=== PATIENT | female | born 1995 | race Two or more races ===

== ENCOUNTER 2024-08-26 14:52 | Inpatient (IN) | payer MEDICAID ==
[~2024-08-26] VITALS: Ht 160 cm; Wt 114.0 kg
[2024-08-26 16:22] LABS: Urine Bacteria FEW /hpf (None Seen); Urine Blood TRACE /uL (Negative); Urine Clarity Turbid (Clear); Urine Color Yellow (Yellow); Urine Mucus FEW (None Seen); Urine Protein, UAD Negative (Negative); Urine Specific Gravity 1.032 (1.001-1.035); Urine Squamous Epithelial Cell MOD /hpf (<5); Urine Urobilinogen 2 mg/dL (Negative); Urine WBC 1 /HPF (0-5); Urine pH 6.5 (5.0-9.0)
[2024-08-26 16:30] LABS: Basophils # (auto) 0.1 10 ^3/uL (0-0.2); Basophils % (auto) 0.5 % (0.0-2.0); Eosinophils # (auto) 0.1 10 ^3/uL (0-0.8); Eosinophils % (auto) 0.7 % (0.0-7.0); Hematocrit 35.9 % (36.0-46.0); Hemoglobin 11.7 g/dL (12.2-16.2); Lymphocytes # (auto) 3.5 10 ^3/uL (0.4-5.4); Lymphocytes % (auto) 22.9 % (10.0-50.0); Mean Corpuscular Hemoglobin 24.7 pg (28.0-32.0); Mean Corpuscular Hgb Conc. 32.7 g/dL (32.0-36.0); Mean Corpuscular Volume 75.5 fL (80.0-100.0); Monocytes # (auto) 0.8 10 ^3/uL (0-1.3); Neutrophils # (auto) 10.7 10 ^3/uL (1.6-8.6); Neutrophils % (auto) 70.9 % (37.0-80.0); Nucleated Red Blood Cells % 0.1 %; Platelet Count (auto) 357 10^3/uL (140-450); Red Blood Cells 4.76 10^6/uL (4.0-5.20); Red Cell Distribution Width 17.3 % (11.8-14.3); White Blood Cell 15.1 10^3/uL (4.4-10.8)
[2024-08-26 16:52] LABS: Alanine Aminotransferase 12 U/L (7-40); Albumin 4.5 g/dL (3.2-4.8); Alkaline Phosphatase 94 U/L (46-116); Anion Gap 6 (5-15); BUN/Creatinine Ratio 15.8 (10.0-20.0); Bilirubin, Total 0.4 mg/dL (0.2-1.0); Calcium 8.7 mg/dL (8.7-10.4); Carbon Dioxide 26 mmol/L (20-31); Chloride 107 mmol/L (98-107); Glucose 101 mg/dL (74-106); Lipase 28 U/L (12-53); Sodium 139 mmol/L (136-145); Total Protein 7.9 g/dL (5.7-8.2)
[2024-08-26 16:54] LABS: Aspartate Aminotransferase < 8 U/L (13-40); Blood Urea Nitrogen 9 mg/dL (9-23)
--- NOTE | 2024-08-26 17:31 | ED.PDOC ---
GI ASSESSMENT HPI Comments 29 y/o F, presents to the ED for CC of abdominal pain. Patient states, she has been experiencing suprapubic abdominal pain that radiates to her lower back x days. Patient denies flank pain, dysuria, fever, nausea, vomiting, or diarrhea. No other symptoms, or modifying factors present at this time. Chief Complaint: Abdominal Pain Time Seen by MD: 16:55 Primary Care Provider: CHAPIS Loya Notes: Nurses Notes, Medications, Allergies Allergies: Coded Allergies: NO KNOWN ALLERGIES (Unverified , 08/26/24) Information Source: Patient Mode of Arrival: Ambulatory Timing: Days Duration: Since onset Prehospital treatment: None Quality: None Vomitus: None Stool: Normal Severity: Moderate Recent: None Recent Hx of: None Pain Location: Suprapubic Modifying Factors: Nothing Associated sign and symptoms: Abdominal Pain Past Medical History PAST MEDICAL HISTORY: Denies Surgical History: Denies all surgeries TRANSFERRER History: Denies all TRANSFERRER Hx Family History Family History: Unknown Social History Smoker: Non-Smoker Alcohol: Denies ETOH Use Drugs: Denies Drug Use Lives In: Home Constitutional: denies: chills, diaphoresis, fatigue, fever, malaise, sweats, weakness, others EENTM: denies: blurred vision, double vision, ear bleeding, ear discharge, ear drainage, ear pain, ear ringing, eye pain, eye redness, hearing loss, mouth pa in, mouth swelling, nasal discharge, nose bleeding, nose congestion, nose pain, photophobia, tearing, throat pain, throat swelling, voice changes, others Respiratory: denies: cough, hemoptysis, orthopnea, SOB at rest, shortness of breath, SOB with excertion, stridor, wheezing, others Cardiovascular: denies: chest pain, dizzy spells, diaphoresis, Dyspnea on exertion, edema, irregular heart beat, left arm pain, lightheadedness, palpitations, PND, syncope, others Gastrointestinal: reports: abdominal pain; denies: abdomen distended, blood streaked bowels, constipated, diarrhea, dysphagia, difficulty swallowing, hematemesis, melena, nausea, poor appetite, poor fluid intake, rectal bleeding, rectal pain, vomiting, others Genitourinary: denies: abnormal vagina bleeding, burning, dyspareunia, dysuria, flank pain, frequency, hematuria, incontinence, pain, , vagina discharge, urgency, others Neurological: denies: dizziness, fainting, headache, left sided numbness, left sided weakness, numbness, paresthesia, pre-existing deficit, right sided numbness, right sided weakness, seizure, speech problems, tingling, tremors, weakness, others Musculoskeletal: reports: back pain; denies: gout, joint pain, joint swelling, muscle pain, muscle stiffness, neck pain, others Integumetry: denies: bruises, change in color, change in hair/nails, dryness, laceration, lesions, lumps, rash, wounds, others Allergic/Immunocompromised: denies: Difficulty Healing, Frequent Infections, Hives, Itching, others Hematologic/Lymphatic: denies: anemia, blood clots, easy bleeding, easy bruising, swollen glands, others Endocrine: denies: excessive hunger, excessive sweating, excessive thirst, excessive urination, flushing, intolerance to cold, intolerance to heat, unexplained weight gain, unexplained weight loss, others Psychiatric: denies: anxiety, bipolar disorder, depression, hopeless, panic di sorder, schizophrenia, sleepless, suicidal, others All Other Systems: Reviewed and Negative Physical Exam General Appearance: No Apparent Distress, Normal HEENT: Normal ENT Inspection, Pharynx Normal, TMs Normal Neck: Full Range of Motion, Non-Tender, Normal, Normal Inspection Respiratory: Chest Non-Tender, Lungs Clear, No Accessory Muscle Use, No Respiratory Distress, Normal Breath Sounds Cardiovascular: No Edema, No Murmur, No Gallop, Normal Peripheral Pulses, Regular Rate/Rhythm Breast Exam: Deferred Gastrointestinal: No Organomegaly, Non Tender, No Pulsatile Mass, Normal Bowel Sounds, Soft Genitalia: Deferred Pelvic: Deferred Rectal: Deferred Extremities: No calf tenderness, Normal capillary refill, Normal inspection, Normal range of motion, Non-tender, No pedal edema Musculoskeletal : Apperance: Normal Neurologic: Alert, 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 Was a procedure done?: No GI differential Dx Differential Diagnosis: Cholangitis, Cholecystitis, Pancreatitis, Urolithiasis, Kidney Stone X-Ray, Labs, Meds, VS Vital Signs Date Time Temp Pulse Resp B/P (MAP) Pulse Ox O2 Delivery O2 Flow Rate FiO2 08/26/24 18:25 76 84 97 Room Air 08/26/24 18:25 98.2 84 20 111/63 (79) 97 98.2 08/26/24 15:03 98.3 95 18 124/70 (88) 95 98.3 Lab Test 08/26/24 16:16 08/26/24 15:07 Range/Units White Blood Count 15.1 H 4.4-10.8 10^3/uL Red Blood Count 4.76 4.0-5.20 10^6/uL Hemoglobin 11.7 L 12.2-16.2 g/dL Hematocrit 35.9 L 36.0-46.0 % Mean Corpuscular Volume 75.5 L 80.0-100.0 fL Mean Corpuscular Hemoglobin 24.7 L 28.0-32.0 pg Mean Corpuscular Hemoglobin Concent 32.7 32.0-36.0 g/dL Red Cell Distribution Width 17.3 H 11.8-14.3 % Platelet Count 357 140-450 10^3/uL Mean Platelet Volume 7.4 6.9-10.8 fL Neutrophils (%) (Auto) 70.9 37.0-80.0 % Lymphocytes (%) (Auto) 22.9 10.0-50.0 % Monocytes (%) (Auto) 5.0 0.0-12.0 % Eosinophils (%) (Auto) 0.7 0.0-7.0 % Basophils (%) (Auto) 0.5 0.0-2.0 % Neutrophils # (Auto) 10.7 H 1.6-8.6 10 ^3/uL Lymphocytes # (Auto) 3.5 0.4-5.4 10 ^3/uL Monocytes # (Auto) 0.8 0-1.3 10 ^3/uL Eosinophils # (Auto) 0.1 0-0.8 10 ^3/uL Basophils # (Auto) 0.1 0-0.2 10 ^3/uL Nucleated Red Blood Cells 0.1 % Sodium Level 139 136-145 mmol/L Potassium Level 4.0 3.5-5.1 mmol/L Chloride Level 107 98-107 mmol/L Carbon Dioxide Level 26 20-31 mmol/L Anion Gap 6 5-15 Blood Urea Nitrogen 9 9-23 mg/dL Creatinine 0.57 0.550-1.02 mg/dL Glomerular Filtration Rate Calc 127 >90 mL/min BUN/Creatinine Ratio 15.8 10.0-20.0 Serum Glucose 101 74-106 mg/dL Calcium Level 8.7 8.7-10.4 mg/dL Total Bilirubin 0.4 0.2-1.0 mg/dL Aspartate Amino Transferase (AST) < 8 L 13-40 U/L Alanine Aminotransferase (ALT) 12 7-40 U/L Alkaline Phosphatase 94 46-116 U/L Total Protein 7.9 5.7-8.2 g/dL Albumin 4.5 3.2-4.8 g/dL Lipase 28 12-53 U/L Urine Color Yellow Yellow Urine Clarity Turbid H Clear Urine pH 6.5 5.0-9.0 Urine Specific [place] 1.032 1.001-1.035 Urine Protein Negative Negative Urine Ketones Negative Negative Urine Blood Trace H Negative /uL Urine Nitrite Negative Negative Urine Bilirubin Negative Negative Urine Urobilinogen 2 H Negative mg/dL Urine Leukocyte Esterase Negative Negative /uL Urine RBC 14 0 - 4 /hpf Urine Microscopic WBC 1 0-5 /HPF Urine Squamous Epithelial Cells Mod <5 /hpf Urine Bacteria Few H None Seen /hpf Urine Mucus Few None Seen Urine Glucose Normal Normal mg/dL Urine Test Negative Negative Time of 1ST Reevaluation: 17:25 Reevaluation 1ST: Unchanged Patient Education/Counseling: Diagnosis, Treatment Family Education/Counseling: No Family Present Departure 1 Departure Time of Disposition: 20:58 Impression: Primary Impression: Appendicitis Disposition: 09 ADMITTED INPATIENT Condition: Stable Comments Patient admitted to hospitalist service for further treatment, evaluation and monitoring. General surgery consulted Antibiotics initiated in the emergency department Critical Care Note Critical Care Time?: No Stability Stability form required: No Heart Score Heart Score: Heart Score Response (Comments) Value History N/A 0 EKG N/A 0 Age N/A 0 Risk Factors N/A 0 Troponin N/A 0 Total 0 I personally scribed for HASEEB PECK MD ([email or web address]) on 08/26/24 at 17:31. Electronically submitted by Heaven Pritchett [email or web address]). HASEEB PECK MD August 26, 2024 17:31 DENISE WHITTINGTON MD August 26, 2024 21:00
--- NOTE | 2024-08-26 18:28 | DVH ---
Indication: suprapubic pain Technique: CT axial images of the abdomen and pelvis are obtained without contrast. Coronal and sagit rachel reformats were obtained. Radiation Dose Information: CTDI volume is 21 mGy. Dose-length product is 1162 mGy*cm Comparison: None FINDINGS: There is limited interpretation of the abdomen and pelvis without administration of intravenous contr ast. Lung bases demonstrate no pleural effusion. Adrenal glands, spleen and pancreas unremarkable in shape. Liver unremarkable in shape. No CT evide nce for cholelithiasis. No hydronephrosis, nephrolithiasis. Stomach partially distended. Small bowel loops are normal in caliber. Colonic diverticular disease. Moderate volume stool within the colon. The appendix is inflamed and 10 mm in diameter. Periappendiceal stranding. There are small adjacent lymph nodes in the right lower quadrant mesentery. There is a right ovarian / adnexal region fat containing lesion with calcifications measuring 6.1 x 3 .8 cm consistent with an ovarian dermoid. Trace free pelvic fluid. No inguinal lymphadenopathy. No aggressive osseous process. IMPRESSION: 1. Acute appendicitis. 2. Right ovarian/ adnexal region dermoid. Recommend pelvic ultrasound and manager media consultation for furth er management. Findings communicated to the emergency room physician at 6:25 p.m. On 08/26/2024
[2024-08-26] MEDS: metroNIDAZOLE 500MG/100ML 100 ML IV ONE (18:30)
--- NOTE | 2024-08-26 19:54 | DVH ---
CHEST RADIOGRAPH Indication: preop Technique: Single frontal view of the chest was obtained COMPARISON: None FINDINGS: Lines and Tubes: None Lungs: Clear Pleura: No effusion. No pneumothorax. Cardiomediastinal contours: Unremarkable Bones: Unremarkable IMPRESSION: No abnormality.
--- NOTE | 2024-08-26 20:15 | DVH ---
TRANSABDOMINAL AND TRANSVAGINAL PELVIC ULTRASOUND CLINICAL HISTORY: Rule out ovarian torsion TECHNIQUE: Multiple grayscale ultrasound images were obtained of the pelvis via transabdominal and tr ansvaginal approach. Limited color Doppler and spectral Doppler acquisitions were also obtained. COMPARISON: None FINDINGS: Uterus: 8.7 x 3.9 x 4.3 cm. The uterine contour is smooth. No myometrial masses are seen. Endometrium: 0.9 cm. No endometrial mass is seen. Right adnexa: right ovary 2.4 x 1.8 x 2.5 cm. Normal arterial blood flow in the ovary. There is a martir moid cyst in the right ovary/ adnexa measuring 5.8 x 4.9 x 4.7 cm. Left adnexa: left ovary 2.1 x 2.6 x 2.2 cm. Normal arterial blood flow in the ovary. No left adnexal mass seen. Corpus luteum in the left ovary measuring up to 1.8 cm. Other: None IMPRESSION: 1. Right ovarian/ adnexal dermoid cyst. 2. Otherwise normal bilateral ovaries and uterus.
--- NOTE | 2024-08-26 21:12 | DVHINCON2 ---
Consultation - Surgical Date Seen: August 26, 2024 Referring Physician Referring Physician Emergency room Reason for Consultation Rule out appendicitis abdominal pain History of Present Illness History of Present Illness This is a 29-year-old female who has 3 children normal pregnancies. Developed epigastric and periumbilical pain 48 hours ago. Went to [facility] yesterday she was discharged with a diagnosis of GERD however after reviewing her labs with her her white count was 19. She was discharged earlier this morning from the emergency room and came to [facility] this afternoon. She denies any fevers or chills. She has had a normal bowel movement this morning. She is mildly hungry as well. She states the pain comes and goes and is sharp when it does it also radiates to her right back flank area. She has last menstrual period was in July 2024. Past Medical/Surgical History Past Medical/Surgical History None Family and Social History Family and Social History None Allergies and medications Allergies: Coded Allergies: NO KNOWN ALLERGIES (Unverified , 08/26/24) Review of systems Review of Systems: HEENT:Normal, CVS:Normal, RESPIRATORY:Normal, GI:Normal, :Normal, MSK:Normal, NEURO:Normal Examination Vital signs Vital Signs Date Time Temp Pulse Resp B/P (MAP) Pulse Ox O2 Delivery O2 Flow Rate FiO2 08/26/24 18:25 76 84 97 Room Air 08/26/24 18: 98.2 111/63 (79) 98.2 Medications Current Medications Medications (Trade) Dose Ordered Sig/Christophe Route PRN Reason Start Time Stop Time Status Last Admin Ceftriaxone Sodium 50 ml @ 100 mls/hr DAILY@09 IV 08/27/24 09:00 Metronidazole 100 ml @ 100 mls/hr Q8HR IV 08/26/24 22:00 Ondansetron HCl (Zofran) 4 mg Q4HP PRN IV NAUSEA / VOMITING 08/26/24 19:15 Morphine Sulfate 2 mg Q4HPRN PRN IV SEVERE PAIN (7-10 PAIN SCALE) 08/26/24 19:15 Laboratory Labs Test 08/26/24 20:20 08/26/24 16:16 08/26/24 15:07 Range/Units White Blood Count 15.1 H 4.4-10.8 10^3/uL Red Blood Count 4.76 4.0-5.20 10^6/uL Hemoglobin 11.7 L 12.2-16.2 g/dL Hematocrit 35.9 L 36.0-46.0 % Mean Corpuscular Volume 75.5 L 80.0-100.0 fL Mean Corpuscular Hemoglobin 24.7 L 28.0-32.0 pg Mean Corpuscular Hemoglobin Concent 32.7 32.0-36.0 g/dL Red Cell Distribution Width 17.3 H 11.8-14.3 % Platelet Count 357 140-450 10^3/uL Mean Platelet Volume 7.4 6.9-10.8 fL Neutrophils (%) (Auto) 70.9 37.0-80.0 % Lymphocytes (%) (Auto) 22.9 10.0-50.0 % Monocytes (%) (Auto) 5.0 0.0-12.0 % Eosinophils (%) (Auto) 0.7 0.0-7.0 % Basophils (%) (Auto) 0.5 0.0-2.0 % Neutrophils # (Auto) 10.7 H 1.6-8.6 10 ^3/uL Lymphocytes # (Auto) 3.5 0.4-5.4 10 ^3/uL Monocytes # (Auto) 0.8 0-1.3 10 ^3/uL Eosinophils # (Auto) 0.1 0-0.8 10 ^3/uL Basophils # (Auto) 0.1 0-0.2 10 ^3/uL Nucleated Red Blood Cells 0.1 % Sodium Level 139 136-145 mmol/L Potassium Level 4.0 3.5-5.1 mmol/L Chloride Level 107 98-107 mmol/L Carbon Dioxide Level 26 20-31 mmol/L Anion Gap 6 5-15 Blood Urea Nitrogen 9 9-23 mg/dL Creatinine 0.57 0.550-1.02 mg/dL Glomerular Filtration Rate Calc 127 >90 mL/min BUN/Creatinine Ratio 15.8 10.0-20.0 Serum Glucose 101 74-106 mg/dL Calcium Level 8.7 8.7-10.4 mg/dL Total Bilirubin 0.4 0.2-1.0 mg/dL Aspartate Amino Transferase (AST) < 8 L 13-40 U/L Alanine Aminotransferase (ALT) 12 7-40 U/L Alkaline Phosphatase 94 46-116 U/L Total Protein 7.9 5.7-8.2 g/dL Albumin 4.5 3.2-4.8 g/dL Lipase 28 12-53 U/L Urine Color Yellow Yellow Urine Clarity Turbid H Clear Urine pH 6.5 5.0-9.0 Urine Specific [place] 1.032 1.001-1.035 Urine Protein Negative Negative Urine Ketones Negative Negative Urine Blood Trace H Negative /uL Urine Nitrite Negative Negative Urine Bilirubin Negative Negative Urine Urobilinogen 2 H Negative mg/dL Urine Leukocyte Esterase Negative Negative /uL Urine RBC 14 0 - 4 /hpf Urine Microscopic WBC 1 0-5 /HPF Urine Squamous Epithelial Cells Mod <5 /hpf Urine Bacteria Few H None Seen /hpf Urine Mucus Few None Seen Urine Glucose Normal Normal mg/dL Urine Test Negative Negative Technique: CT axial images of the abdomen and pelvis are obtained without contrast. Coronal and sagittal reformats were obtained. Radiation Dose Information: CTDI volume is 21 mGy. Dose-length product is 1162 mGy*cm Comparison: None FINDINGS: There is limited interpretation of the abdomen and pelvis without administration of intravenous contrast. Lung bases demonstrate no pleural effusion. Adrenal glands, spleen and pancreas unremarkable in shape. Liver unremarkable in shape. No CT evidence for cholelithiasis. No hydronephrosis, nephrolithiasis. Stomach partially distended. Small bowel loops are normal in caliber. Colonic diverticular disease. Moderate volume stool within the colon. The appendix is inflamed and 10 mm in diameter. Periappendiceal stranding. There are small adjacent lymph nodes in the right lower quadrant mesentery. There is a right ovarian / adnexal region fat containing lesion with calcifications measuring 6.1 x 3.8 cm consistent with an ovarian dermoid. Trace free pelvic fluid. No inguinal lymphadenopathy. No aggressive osseous process. IMPRESSION: 1. Acute appendicitis. 2. Right ovarian/ adnexal region dermoid. Recommend pelvic ultrasound and learning program manager consultation for further management. Findings communicated to the emergency room physician at 6:25 p.m. On 08/26/2024 TRANSABDOMINAL AND TRANSVAGINAL PELVIC ULTRASOUND CLINICAL HISTORY: Rule out ovarian torsion TECHNIQUE: Multiple grayscale ultrasound images were obtained of the pelvis via transabdominal and transvaginal approach. Limited color Doppler and spectral Doppler acquisitions were also obtained. COMPARISON: None FINDINGS: Uterus: 8.7 x 3.9 x 4.3 cm. The uterine contour is smooth. No myometrial masses are seen. Endometrium: 0.9 cm. No endometrial mass is seen. Right adnexa: right ovary 2.4 x 1.8 x 2.5 cm. Normal arterial blood flow in the ovary. There is a dermoid cyst in the right ovary/ adnexa measuring 5.8 x 4.9 x 4.7 cm. Left adnexa: left ovary 2.1 x 2.6 x 2.2 cm. Normal arterial blood flow in the ovary. No left adnexal mass seen. Corpus luteum in the left ovary measuring up to 1.8 cm. Other: None IMPRESSION: 1. Right ovarian/ adnexal dermoid cyst. 2. Otherwise normal bilateral ovaries and uterus. Examination: GENERAL:Normal, HEENT:Normal, NECK:Normal, LUNGS:Normal, CVS:Normal, ABDOMEN:Abnormal (Abdominal tenderness in the right lower quadrant as well as the periumbilical area in the right flank. No rebound no guarding.), MSK:Normal Problem List/Assessment/Plan Problems: (1) Appendicitis Assessment and Plan 29-year-old female with early CAT scan findings of appendicitis. Also a large adnexal mass in the right side. Admit IV fluids IV antibiotics. We will discuss the case with clerical and office support workers We will re-evaluate in the morning for possible laparoscopic possible open appendectomy Plan discussed with Plan discussed with: Patient Visit Coding Surgery Date of Service if different f: August 26, 2024 Billing Provider: BRITTANEY URIAS Jr., MD Surgery Visit Codes: 08861 - INP CONSULT <80 MIN BRITTANEY URIAS Jr., MD August 26, 2024 21:12
[2024-08-26 21:17] LABS: INR 1.04 (0.9-1.15); Partial Thromboplastin Time 30.8 SEC (24.5-34.5)
[2024-08-26] MEDS: ONDANSETRON ODT 4 MG TAB PO ONE (21:38)
[2024-08-26] MEDS: FAMOTIDINE 20 MG TAB PO ONE (21:38)
[2024-08-26] MEDS: MAALOX PLUS or MAALOX 30 ML PO ONE (21:41)
[2024-08-26] MEDS: MORPHINE SULFATE INJ 2 MG/ml SYRG IV ONE (21:41)
[2024-08-26 21:48] VITALS: PULSE 99; RESP 16; O2SAT 99
[2024-08-26] MEDS: metroNIDAZOLE 500MG/100ML 100 ML IV SCH (22:00)
[2024-08-26] MEDS: SODIUM CHLORIDE 0.9% 1,000 ML IV ONE (23:08)
[2024-08-26] MEDS: cefTRIAXone 1GM/50ML D5W 50 ML IV ONE (23:08)
[2024-08-26 23:55] VITALS: PULSE 64; RESP 18; O2SAT 93
[2024-08-27] VITALS (8 sets, daily range): BP systolic 97–132; BP diastolic 52–78; PULSE 65–89; RESP 16–20; TEMP 97.9–98.8; O2SAT 92–100
--- NOTE | 2024-08-27 00:01 | DVHHP2 ---
History of Present Illness Reason for Visit: Abdominal pain History of Present Illness 29-year-old female presents for evaluation of abdominal pain. Patient reports a three day history of epigastric/periumbilical abdominal pain that is sharp in nature and intermittent. He states today the pain became more severe with associated nausea. Denies fever or chills. No other acute complaints. Past Medical History Denies Past Surgical History Denies Family History Noncontributory Smoke: No ALCOHOL: none Drugs: None Lives: with Family Review of Systems Review of Systems Review of systems are currently negative otherwise addressed in HPI. Allergies: Coded Allergies: NO KNOWN ALLERGIES (Unverified , 08/26/24) Medications Current Medications Medications Dose Ordered Sig/Christophe Route Start Time Stop Time Status Last Admin Dose Admin Ceftriaxone Sodium 50 ml @ 100 mls/hr DAILY@09 IV 08/27/24 09:00 Metronidazole 100 ml @ 100 mls/hr Q8HR IV 08/26/24 22:00 Ondansetron HCl 4 mg Q4HP PRN IV 08/26/24 19:15 Morphine Sulfate 2 mg Q4HPRN PRN IV 08/26/24 19:15 Exam Vital Signs Vital Signs Date Time Temp Pulse Resp B/P (MAP) Pulse Ox O2 Delivery O2 Flow Rate FiO2 08/26/24 21:48 99 16 99 Room Air* 0 21 08/26/24 21:42 98.9 107/71 (83) 98.9 Exam Gen: 29-year-old female in mild distress, morbidly obese Skin: Warm, dry, normal color and texture, no rash. HEENT: Normocephalic atraumatic, mucous membranes moist and pink. Neck: Cervical and supraclavicular nodes normal without enlargement, trachea is midline, thyroid gland is normal without masses. Pulmonary: Clear to auscultation and percussion bilaterally. Cardiac: Regular rate and rhythm. No murmur Abdomen: Soft, epigastric/periumbilical tenderness, nondistended, bowel sounds present all 4 quadrants, no guarding, no rigidity, no organomegaly. Extremities: No cyanosis, clubbing, no edema Neuro: Cranial nerves II through XII grossly intact, normal affect and speech, no focal motor deficits. Labs/Xrays ORDERING PHYSICIAN: CANDACE MCCALL PROCEDURE(s): CXR1 - CHEST XRAY 1 VIEW REASON: preop ORDER NUMBER(s): [id number], ACCESSION NUMBER(s): [id number] CHEST RADIOGRAPH Indication: preop Technique: Single frontal view of the chest was obtained COMPARISON: None FINDINGS: Lines and Tubes: None Lungs: Clear Pleura: No effusion. No pneumothorax. Cardiomediastinal contours: Unremarkable Bones: Unremarkable IMPRESSION: No abnormality. RING PHYSICIAN: DENISE WHITTINGTON MD PROCEDURE(s): PELUS - PELVIC REASON: Rule out ovarian torsion ORDER NUMBER(s): [id number], ACCESSION NUMBER(s): [id number] TRANSABDOMINAL AND TRANSVAGINAL PELVIC ULTRASOUND CLINICAL HISTORY: Rule out ovarian torsion TECHNIQUE: Multiple grayscale ultrasound images were obtained of the pelvis via transabdominal and transvaginal approach. Limited color Doppler and spectral Doppler acquisitions were also obtained. COMPARISON: None FINDINGS: Uterus: 8.7 x 3.9 x 4.3 cm. The uterine contour is smooth. No myometrial masses are seen. Endometrium: 0.9 cm. No endometrial mass is seen. Right adnexa: right ovary 2.4 x 1.8 x 2.5 cm. Normal arterial blood flow in the ovary. There is a dermoid cyst in the right ovary/ adnexa measuring 5.8 x 4.9 x 4.7 cm. Left adnexa: left ovary 2.1 x 2.6 x 2.2 cm. Normal arterial blood flow in the ovary. No left adnexal mass seen. Corpus luteum in the left ovary measuring up to 1.8 cm. Other: None IMPRESSION: 1. Right ovarian/ adnexal dermoid cyst. 2. Otherwise normal bilateral ovaries and uterus. RING PHYSICIAN: HASEEB PECK MD PROCEDURE(s): ABPL - CT AB PEL WO CON-NO ORAL OR IV REASON: suprapubic pain ORDER NUMBER(s): [id number], ACCESSION NUMBER(s): [id number] Indication: suprapubic pain Technique: CT axial images of the abdomen and pelvis are obtained without contrast. Coronal and sagittal reformats were obtained. Radiation Dose Information: CTDI volume is 21 mGy. Dose-length product is 1162 mGy*cm Comparison: None FINDINGS: There is limited interpretation of the abdomen and pelvis without administration of intravenous contrast. Lung bases demonstrate no pleural effusion. Adrenal glands, spleen and pancreas unremarkable in shape. Liver unremarkable in shape. No CT evidence for cholelithiasis. No hydronephrosis, nephrolithiasis. Stomach partially distended. Small bowel loops are normal in caliber. Colonic diverticular disease. Moderate volume stool within the colon. The appendix is inflamed and 10 mm in diameter. Periappendiceal stranding. There are small adjacent lymph nodes in the right lower quadrant mesentery. There is a right ovarian / adnexal region fat containing lesion with calcifications measuring 6.1 x 3.8 cm consistent with an ovarian dermoid. Trace free pelvic fluid. No inguinal lymphadenopathy. No aggressive osseous process. IMPRESSION: 1. Acute appendicitis. 2. Right ovarian/ adnexal region dermoid. Recommend pelvic ultrasound and home advisor consultation for further management. Findings communicated to the emergency room physician at 6:25 p.m. On 08/26/2024 Labs Test 08/26/24 20:20 08/26/24 16:16 08/26/24 15:07 Range/Units Prothrombin Time 11.0 9.3-11.8 sec Prothrombin Time INR 1.04 0.9-1.15 Activated Partial Thromboplast Time 30.8 24.5-34.5 SEC White Blood Count 15.1 H 4.4-10.8 10^3/uL Red Blood Count 4.76 4.0-5.20 10^6/uL Hemoglobin 11.7 L 12.2-16.2 g/dL Hematocrit 35.9 L 36.0-46.0 % Mean Corpuscular Volume 75.5 L 80.0-100.0 fL Mean Corpuscular Hemoglobin 24.7 L 28.0-32.0 pg Mean Corpuscular Hemoglobin Concent 32.7 32.0-36.0 g/dL Red Cell Distribution Width 17.3 H 11.8-14.3 % Platelet Count 357 140-450 10^3/uL Mean Platelet Volume 7.4 6.9-10.8 fL Neutrophils (%) (Auto) 70.9 37.0-80.0 % Lymphocytes (%) (Auto) 22.9 10.0-50.0 % Monocytes (%) (Auto) 5.0 0.0-12.0 % Eosinophils (%) (Auto) 0.7 0.0-7.0 % Basophils (%) (Auto) 0.5 0.0-2.0 % Neutrophils # (Auto) 10.7 H 1.6-8.6 10 ^3/uL Lymphocytes # (Auto) 3.5 0.4-5.4 10 ^3/uL Monocytes # (Auto) 0.8 0-1.3 10 ^3/uL Eosinophils # (Auto) 0.1 0-0.8 10 ^3/uL Basophils # (Auto) 0.1 0-0.2 10 ^3/uL Nucleated Red Blood Cells 0.1 % Sodium Level 139 136-145 mmol/L Potassium Level 4.0 3.5-5.1 mmol/L Chloride Level 107 98-107 mmol/L Carbon Dioxide Level 26 20-31 mmol/L Anion Gap 6 5-15 Blood Urea Nitrogen 9 9-23 mg/dL Creatinine 0.57 0.550-1.02 mg/dL Glomerular Filtration Rate Calc 127 >90 mL/min BUN/Creatinine Ratio 15.8 10.0-20.0 Serum Glucose 101 74-106 mg/dL Calcium Level 8.7 8.7-10.4 mg/dL Total Bilirubin 0.4 0.2-1.0 mg/dL Aspartate Amino Transferase (AST) < 8 L 13-40 U/L Alanine Aminotransferase (ALT) 12 7-40 U/L Alkaline Phosphatase 94 46-116 U/L Total Protein 7.9 5.7-8.2 g/dL Albumin 4.5 3.2-4.8 g/dL Lipase 28 12-53 U/L Urine Color Yellow Yellow Urine Clarity Turbid H Clear Urine pH 6.5 5.0-9.0 Urine Specific [place] 1.032 1.001-1.035 Urine Protein Negative Negative Urine Ketones Negative Negative Urine Blood Trace H Negative /uL Urine Nitrite Negative Negative Urine Bilirubin Negative Negative Urine Urobilinogen 2 H Negative mg/dL Urine Leukocyte Esterase Negative Negative /uL Urine RBC 14 0 - 4 /hpf Urine Microscopic WBC 1 0-5 /HPF Urine Squamous Epithelial Cells Mod <5 /hpf Urine Bacteria Few H None Seen /hpf Urine Mucus Few None Seen Urine Glucose Normal Normal mg/dL Urine Test Negative Negative Assessment/Plan Assessment/Plan Assessment Acute abdominal pain Acute appendicitis Leukocytosis Morbid obesity Adnexal mass Plan Admit the patient to [facility] to the hospitalist Surgical consultation OBGYN consult Rocephin/Flagyl Maintenance IV fluids NPO Pain management Continue treatment per orders. Plan discussed with: Patient My Orders Orders - CANDACE MCCALL Procedure Category Date Status Time Ceftriaxone 1gm/50ml PHA 08/27/24 In Process D5w (Rocephin) 09:00 Metronidazole PHA 08/26/24 In Process 500mg/100ml (Flagyl 22:00 Chest Xray 1 View XY 08/26/24 Resulted 19:12 Sodium Chloride 0.9% PHA 08/26/24 In Process 19:15 Admit ADMIT 08/26/24 Transmitted 19:12 Ondansetron Hcl PHA 08/26/24 In Process (Zofran) 19:15 Complete Blood Count LAB 08/27/24 Verified 04:00 Comprehensive LAB 08/27/24 Verified Metabolic Panel 04:00 Npo (Nothing By DIET 08/27/24 Transmitted Mouth) Diet Breakfast Condition: Stable CLAY 08/26/24 In Process 19:12 Bedrest With Bathroom CLAY 08/26/24 In Process Privileg 19:12 Morphine Sulfate PHA 08/26/24 In Process Injection 19:15 * 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
[2024-08-27 06:40] LABS: Basophils # (auto) 0 10 ^3/uL (0-0.2); Basophils % (auto) 0.4 % (0.0-2.0); Eosinophils # (auto) 0.2 10 ^3/uL (0-0.8); Nucleated Red Blood Cells % 0.1 %
[2024-08-27 06:42] LABS: Eosinophils % (auto) 1.4 % (0.0-7.0); Hematocrit 33.6 % (36.0-46.0); Hemoglobin 10.9 g/dL (12.2-16.2); Lymphocytes # (auto) 2.8 10 ^3/uL (0.4-5.4); Mean Corpuscular Hemoglobin 24.6 pg (28.0-32.0); Mean Corpuscular Hgb Conc. 32.5 g/dL (32.0-36.0); Mean Corpuscular Volume 75.7 fL (80.0-100.0); Monocytes # (auto) 0.8 10 ^3/uL (0-1.3); Monocytes % (auto) 7.1 % (0.0-12.0); Neutrophils # (auto) 6.9 10 ^3/uL (1.6-8.6); Neutrophils % (auto) 65.1 % (37.0-80.0); Platelet Count (auto) 325 10^3/uL (140-450); Red Blood Cells 4.44 10^6/uL (4.0-5.20); Red Cell Distribution Width 17.1 % (11.8-14.3); White Blood Cell 10.7 10^3/uL (4.4-10.8)
[2024-08-27 06:53] LABS: Alanine Aminotransferase 11 U/L (7-40); Alkaline Phosphatase 84 U/L (46-116); Anion Gap 5 (5-15); Carbon Dioxide 27 mmol/L (20-31); Chloride 107 mmol/L (98-107); Glucose 91 mg/dL (74-106); Potassium 3.7 mmol/L (3.5-5.1); Sodium 139 mmol/L (136-145); Total Protein 7.2 g/dL (5.7-8.2)
[2024-08-27 06:54] LABS: Bilirubin, Total 0.4 mg/dL (0.2-1.0)
[2024-08-27 06:55] LABS: Aspartate Aminotransferase 9 U/L (13-40); Blood Urea Nitrogen 8 mg/dL (9-23); Calcium 8.4 mg/dL (8.7-10.4)
[2024-08-27] MEDS: cefTRIAXone 1GM/50ML D5W 50 ML IV SCH (09:12)
[2024-08-27] MEDS ORDERED: MIDAZOLAM HCL 2MG/2ML 2ml VIAL (1mg/ml) ONE (09:37)
[2024-08-27] MEDS ORDERED: fentaNYL CITRATE 100 MCG/2 ML VL ONE (09:37)
[2024-08-27] MEDS ORDERED: PROPOFOL 10 MG/ML 20 ML IV ONE (09:37)
[2024-08-27] MEDS ORDERED: ONDANSETRON HCL 4 MG/2 ML VIAL ONE (09:38)
[2024-08-27] MEDS ORDERED: DexAMETHasone SOD PHOS 10MG/1ML VIAL INJ ONE (09:38)
--- NOTE | 2024-08-27 10:06 | DVHPN2 ---
Progress Note Date Seen: August 27, 2024 Medical Necessity Reason Pt with a Central, PICC or Fol: No Objective vital signs Vital Sign Date Time Temp Pulse Resp B/P (MAP) Pulse Ox O2 Delivery O2 Flow Rate FiO2 08/27/24 08:41 98.8 86 20 107/62 (77) 100 98.8 08/26/24 23:55 Room Air* 0 21 Total Intake and Output 08/26/24 08/26/24 08/27/24 15:00 23:00 07:00 Intake Total 100 ml 100 ml Balance 100 ml 100 ml medications Current Medications Medications Dose Ordered Sig/Christophe Route Start Time Stop Time Status Last Admin Dose Admin Ceftriaxone Sodium 50 ml @ 100 mls/hr DAILY@09 IV 08/27/24 09:00 08/27/24 09:12 100 MLS/HR Metronidazole 100 ml @ 100 mls/hr Q8HR IV 08/26/24 22:00 08/27/24 05:46 100 MLS/HR Ondansetron HCl 4 mg Q4HP PRN IV 08/26/24 19:15 Morphine Sulfate 2 mg Q4HPRN PRN IV 08/26/24 19:15 laboratory and microbiology Laboratory Tests 08/27/24 06:22 Test 08/27/24 06:22 Range/Units Serum Glucose 91 74-106 mg/dL Problem List/Assessment/Plan Problem List/Assessment/Plan 08/27/24 patient has right lower quadrant abdominal pain and tenderness with guarding and rebound, CT scan shows appendicitis and ovarian dermoid, patient wished to have operation, which was explained in great detail with risks and complications as well as treatment alternatives discussed, family at bedside, all wish to proceed with operation. Plan discussed with: Patient CADENCE JEFF MD August 27, 2024 10:06
[2024-08-27] MEDS ORDERED: HYDROmorphone HCL 2 MG/ML VL/or syr ONE (10:29)
[2024-08-27] MEDS ORDERED: SUGAMMADEX 200mg/2ml Vial (100MG/ML) IV ONE (10:31)
[2024-08-27] MEDS: BUPIVACAINE 0.5% P/F INJ 10 ML VIAL ONE (11:10)
[2024-08-27] MEDS: LIDOCAINE W/ EPINEPHRINE 1% 20ML VIAL ONE (11:10)
[2024-08-27 11:15] LABS: Hepatitis B Surface Antigen Negative (Negative); Hepatitis C Antibody Negative (Negative)
[2024-08-27] MEDS: ACETAMINOPHEN IV 1000 MG/100ML (10MG/ML) IV ONE (11:22)
--- NOTE | 2024-08-27 11:49 | DVHOP ---
DATE OF SURGERY: 08/27/2024 PREOPERATIVE DIAGNOSES: Appendicitis, right ovarian tumor. POSTOPERATIVE DIAGNOSES: Appendicitis, right ovarian tumor. SURGEON: Bryce Escalona MD COMMERCIAL HOUSEKEEPER: Brandan Melissa. ANESTHESIA: General endotracheal. ANESTHESIOLOGIST: Dwight Fernandez. DESCRIPTION OF PROCEDURE: Following thorough explanation of the operation and treatment options with the patient and her family at bedside, the patient was taken to the operating room. General endotracheal anesthesia was administered. The patient's abdomen was prepped and draped and a supraumbilical incision was made. A Veress needle was inserted by the hanging drop technique to establish pneumoperitoneum to 15 mmHg pressure by insufflation with carbon dioxide. With the abdomen fully distended, the Veress needle was removed and replaced with a 5 mm trocar port through which a 0 degree viewing laparoscope was inserted. Under direct vision, additional 5 and 10 mm ports were inserted through the upper abdominal wall in the midline and through the subumbilical incision in the midline as well. Instrumentation was then introduced. The patient was placed in Trendelenburg position. The appendix was found to be acutely inflamed. It was placed on tension using a Maria C forceps. The appendix was traced to its confluence with the cecum at its base of the confluence of the cecum and the appendix. It was divided with an Endo TERRENCE stapler with vascular lacho. The severed appendix and mesoappendix were removed from the peritoneal cavity by placement in a specimen extraction bag, which was then withdrawn through the infraumbilical incision. Subsequently, the right ovary and tumor were placed on tension utilizing the screw placed into the ovary. It was placed on tension and an Endo TERRENCE stapler again placed at the infundibular portion of the tumor with the vascular lacho in place. It was used for division of the pedicle of the tumor and the right ovary were then removed by placement of specimen extraction bag through the infraumbilical incision. The patient's right lower quadrant was profusely irrigated. Irrigant was aspirated. Hemostasis was meticulously accomplished. A 10 mm Rudy-Moran drain was placed into the right paracolic gutter and direct into the pelvis, exteriorized through the 5 mm port site supraumbilical location, secured with a 2-0 nylon suture. Further assurance of complete hemostasis at the port sites and at the appendectomy and the ovarian resection site. The instrumentation was withdrawn. Pneumoperitoneum was evacuated. Fascial defect was closed using 0 Vicryl. The wound was approximated using Monocryl suture, Dermabond glue, and Steri-Strips. The patient remained stable throughout the procedure, left the operating room following an accurate needle and sponge count. Her sister was thoroughly informed at [phone]. MD CHRISTO Flynn/BIBI TID: [id number] RECEIPT: [id number]
[2024-08-27] MEDS: ACETAMINOPHEN IV 100 ML IV ONE (11:52)
[2024-08-27] MEDS ORDERED: HYDROmorphone HCL 2 MG/ML VL/or syr IV PRN (12:00)
[2024-08-27] MEDS: ONDANSETRON HCL 4 MG/2 ML VIAL IV ONE (12:00)
[2024-08-27] MEDS: KETOROLAC TROMETH 30 MG/ML 1ML VIAL IV ONE ×2 (12:00→18:29)
[2024-08-27] MEDS: MORPHINE SULFATE INJ 2 MG/ml SYRG IV PRN (13:39)
[2024-08-27] MEDS: MORPHINE SULFATE INJ 2 MG/ml SYRG IV ONE (16:47)
[2024-08-27] MEDS: D5W/SOD CHL 0.45%/KCL 20MEQ 1,000 ML IV SCH (21:15)
--- NOTE | 2024-08-27 22:45 | DVHPN2 ---
Subjective The patient is seen and examined at bedside. The patient still complain of abdominal pain. Reviewed: Care Plan, H&P, Labs, Medications, Previous Orders, Radiology Changes from previous H/P or p: No Changes Objective Vitals Vital Signs Date Time Temp Pulse Resp B/P (MAP) Pulse Ox O2 Delivery O2 Flow Rate FiO2 08/27/24 16:48 98.2 89 20 101/58 (72) 92 98.2 08/27/24 11:22 Mask 10.0 08/27/24 11:22 95 Intake/Output Intake and Output 08/27/24 07:00 Intake Total 200 ml Balance 200 ml Intake Oral 0 ml IV Total 200 ml General Appearance: Alert, Oriented X3, Cooperative, No acute distress HEENT: Atraumatic, PERRLA, EOMI, Mucous membr. moist/pink Neck: Supple Lungs: Clear to auscultation, Normal air movement Cardiovascular: Regular rate, Normal S1, Normal S2, No murmurs, Gallops, Rubs Abdomen: Normal bowel sounds, Soft, No tenderness Neuro: Cranial nerves 3-12 NL Psych/Mental Status: Mental status NL Medications Current Medications Medications Dose Ordered Sig/Christophe Route Start Time Stop Time Status Last Admin Dose Admin Ceftriaxone Sodium 50 ml @ 100 mls/hr DAILY@09 IV 08/27/24 09:00 08/27/24 09:12 100 MLS/HR Metronidazole 100 ml @ 100 mls/hr Q8HR IV 08/26/24 22:00 08/27/24 21:32 100 MLS/HR Ondansetron HCl 4 mg Q4HP PRN IV 08/26/24 19:15 Morphine Sulfate 2 mg Q4HPRN PRN IV 08/26/24 19:15 08/27/24 13:39 2 MG Potassium Chloride/Dextrose/ Sod Cl 1,000 ml @ 100 mls/hr Q10H IV 08/27/24 11:15 Laboratory Results Laboratory Tests 08/27/24 06:22 Chemistry Test 08/27/24 06:22 Albumin 4.0 g/dL (3.2-4.8) Calcium Level 8.4 mg/dL (8.7-10.4) L Total Protein 7.2 g/dL (5.7-8.2) LFT Test 08/27/24 06:22 Alanine Aminotransferase (ALT) 11 U/L (7-40) Alkaline Phosphatase 84 U/L (46-116) Aspartate Amino Transferase (AST) 9 U/L (13-40) L Total Bilirubin 0.4 mg/dL (0.2-1.0) Urinalysis Test 08/26/24 15:07 Urine Color Yellow (Yellow) Urine Clarity Turbid (Clear) H Urine pH 6.5 (5.0-9.0) Urine Specific [place] 1.032 (1.001-1.035) Urine Protein Negative (Negative) Urine Ketones Negative (Negative) Urine Blood Trace /uL (Negative) H Urine Nitrite Negative (Negative) Urine Bilirubin Negative (Negative) Urine Urobilinogen 2 mg/dL (Negative) H Urine Leukocyte Esterase Negative /uL (Negative) Urine RBC 14 /hpf (0 - 4) Urine Microscopic WBC 1 /HPF (0-5) Urine Squamous Epithelial Cells Mod /hpf (<5) Urine Bacteria Few /hpf (None Seen) H Urine Mucus Few (None Seen) Urine Glucose Normal mg/dL (Normal) Urine Test Negative (Negative) Microbiology Microbiology Date/Time Source Procedure Growth Status 08/26/24 19:00 Blood Blood Culture - Preliminary NO GROWTH AFTER 24 HOURS OF INCUBATION. Resulted Labs and/or images reviewed: Labs reviewed by me Assessment/Plan Assessment/Plan Acute abdominal pain Acute appendicitis Leukocytosis Morbid obesity Adnexal mass Continuing current management. Continuing with IV antibiotic. Waiting for surgery appendectomy. Appreciate surgeon and OBGYN input. Continuing pain medication This medical document was created using an electronic medical record system with M*M flurency direct computerized dictation system. Although this document has been carefully reviewed, there may still be some phonetic and typographical errors. These areas are purely typographical due to imperfections of the software programs, and do not reflect any compromise in the patient's medical care. Plan discussed with: Patient Date of Service: August 27, 2024 Billing Provider: CHAPINCITO NEUMANN MD Common Visit Codes: [id number] INP/OBS CARE(HIGH) CHAPINCITO NEUMANN MD August 27, 2024 22:45
[2024-08-28] VITALS (8 sets, daily range): BP systolic 96–111; BP diastolic 47–65; PULSE 70–98; RESP 16–77; TEMP 98.2–99.5; O2SAT 18–98
[2024-08-28] MEDS: KETOROLAC TROMETH 30 MG/ML 1ML VIAL IV ONE (00:06)
[2024-08-28 07:21] LABS: Basophils # (auto) 0 10 ^3/uL (0-0.2); Basophils % (auto) 0.1 % (0.0-2.0); Eosinophils # (auto) 0 10 ^3/uL (0-0.8); Hemoglobin 10.4 g/dL (12.2-16.2); Lymphocytes # (auto) 2.3 10 ^3/uL (0.4-5.4); Red Blood Cells 4.23 10^6/uL (4.0-5.20); White Blood Cell 16.3 10^3/uL (4.4-10.8)
[2024-08-28 07:23] LABS: Hematocrit 31.8 % (36.0-46.0); Mean Corpuscular Hemoglobin 24.5 pg (28.0-32.0); Mean Corpuscular Hgb Conc. 32.6 g/dL (32.0-36.0); Monocytes # (auto) 0.9 10 ^3/uL (0-1.3); Monocytes % (auto) 5.6 % (0.0-12.0); Neutrophils # (auto) 13.1 10 ^3/uL (1.6-8.6); Neutrophils % (auto) 80.3 % (37.0-80.0); Platelet Count (auto) 375 10^3/uL (140-450)
--- NOTE | 2024-08-28 12:20 | DVHPN2 ---
Subjective Date Seen: August 28, 2024 Post op day Post op day: 1 Patient reports: No new complaints Nursing reports: No new complaints General: Normal HNT: Normal Cardiovascular: Normal Respiratory: Normal Gastrointestinal: Abdominal Pain Genitourinary: Normal Musculoskeletal: Normal Neurological: Normal Objective Vitals Vital Sign Date Time Temp Pulse Resp B/P (MAP) Pulse Ox O2 Delivery O2 Flow Rate FiO2 08/28/24 08:47 98.3 70 20 96/47 (63) 97 98.3 08/28/24 08:00 Room Air* 0 21 Total Intake and Output 08/27/24 08/27/24 08/28/24 15:00 23:00 07:00 Intake Total 100 ml 100 ml 630 ml Output Total 80 ml Balance 100 ml 20 ml 630 ml Medications Current Medications Medications Dose Ordered Sig/Christophe Route Start Time Stop Time Status Last Admin Dose Admin Ceftriaxone Sodium 50 ml @ 100 mls/hr DAILY@09 IV 08/27/24 09:00 08/28/24 09:54 100 MLS/HR Metronidazole 100 ml @ 100 mls/hr Q8HR IV 08/26/24 22:00 08/28/24 05:30 100 MLS/HR Ondansetron HCl 4 mg Q4HP PRN IV 08/26/24 19:15 Morphine Sulfate 2 mg Q4HPRN PRN IV 08/26/24 19:15 08/27/24 13:39 2 MG Potassium Chloride/Dextrose/ Sod Cl 1,000 ml @ 100 mls/hr Q10H IV 08/27/24 11:15 08/28/24 06:58 100 MLS/HR General: Normal, Well developed, Obese Head/Eyes: Normal ENT: Normal Neck: Normal Lungs: Normal, Normal inspection Cardiovascular: Normal, Regular rate and rhythm Abdominal: Normal, Other (appropiately tender) Musculoskeletal: Normal, Full Range of Motion Extremities: Normal, No clubbing, No cyanosis Skin: Normal, Normal inspection, Normal color Neurological: Normal, CNII-XII Intact, Normal Speech Labs and Microbiology Laboratory Tests 08/28/24 06:56 08/27/24 06:22 Test 08/27/24 06:22 Range/Units Serum Glucose 91 74-106 mg/dL Ass/Plan Labs and/or images reviewed: Labs reviewed by me, Image(s) reviewed by me Problem List 08/27/24 patient has right lower quadrant abdominal pain and tenderness with guarding and rebound, CT scan shows appendicitis and ovarian dermoid, patient wished to have operation, which was explained in great detail with risks and complications as well as treatment alternatives discussed, family at bedside, all wish to proceed with operation. Problems(with codes): (1) Appendicitis Assessment/Plan s/p laparoscopic appendectomy, removal of ovarian cyst feels better no new complaints labs reviewed, abdomen soft, non distended, appropriately tender tolerating diet , passing gas, denies nausea an vomiting minimal DERICK drain seropus sanguinous fluid Plan: advance diet as tolerated ok to discharge per surgery point of view patient to follow up in clinic in 2 weeks Discharge with antibiotics Prognosis: Excellent Plan discussed with patient, parents, Dr. Escalona Visit Coding Surgery Date of Service if different f: August 28, 2024 Billing Provider: CADENCE ESCALONA MD Surgery Visit Codes: [id number] INP/OBS CARE(HIGH) SHANAE WERNER SUPERVISOR ESTERS AND EMULSIFIERS August 28, 2024 12:20
[2024-08-28] MEDS: KETOROLAC TROMETH 30 MG/ML 1ML VIAL IV PRN (14:00)
[2024-08-29 01:00] VITALS: BP 101/67; PULSE 80; RESP 18; TEMP 98.2; O2SAT 95
[2024-08-29 05:00] VITALS: BP 98/61; PULSE 77; RESP 18; TEMP 98.6; O2SAT 93
[2024-08-29] MEDS: ONDANSETRON HCL 4 MG/2 ML VIAL IV PRN (07:01)
[2024-08-29 08:48] VITALS: BP 100/45; PULSE 70; RESP 18; TEMP 97.8; O2SAT 97
--- NOTE | 2024-08-29 11:11 | DVHPN2 ---
Progress Note Date Seen: August 29, 2024 Medical Necessity Reason Pt with a Central, PICC or Fol: No Objective vital signs Vital Sign Date Time Temp Pulse Resp B/P (MAP) Pulse Ox O2 Delivery O2 Flow Rate FiO2 08/29/24 08:48 97.8 70 18 100/45 (63) 97 97.8 08/28/24 20:00 Room Air* 0 21 Total Intake and Output 08/28/24 08/28/24 08/29/24 15:00 23:00 07:00 Intake Total 150 ml 415 ml 500 ml Output Total 30 ml Balance 150 ml 415 ml 470 ml medications Current Medications Medications Dose Ordered Sig/Christophe Route Start Time Stop Time Status Last Admin Dose Admin Ceftriaxone Sodium 50 ml @ 100 mls/hr DAILY@09 IV 08/27/24 09:00 08/29/24 10:35 100 MLS/HR Metronidazole 100 ml @ 100 mls/hr Q8HR IV 08/26/24 22:00 08/29/24 05:32 100 MLS/HR Ondansetron HCl 4 mg Q4HP PRN IV 08/26/24 19:15 08/29/24 07:01 4 MG Morphine Sulfate 2 mg Q4HPRN PRN IV 08/26/24 19:15 08/27/24 13:39 2 MG Potassium Chloride/Dextrose/ Sod Cl 1,000 ml @ 100 mls/hr Q10H IV 08/27/24 11:15 08/29/24 03:08 100 MLS/HR Ketorolac Tromethamine 30 mg Q8HP PRN IV 08/28/24 13:15 09/02/24 13:14 08/29/24 01:29 30 MG laboratory and microbiology Laboratory Tests 08/28/24 06:56 08/27/24 06:22 Test 08/27/24 06:22 Range/Units Serum Glucose 91 74-106 mg/dL Problem List/Assessment/Plan Problem List/Assessment/Plan 08/27/24 patient has right lower quadrant abdominal pain and tenderness with guarding and rebound, CT scan shows appendicitis and ovarian dermoid, patient wished to have operation, which was explained in great detail with risks and complications as well as treatment alternatives discussed, family at bedside, all wish to proceed with operation. 08/29/24 DOING WELL, WOUNDS CLEAN AND WELL APPROXIMATED, ABDOMEN NON TENDER, NON DISTENDED,SHE CAN GO HOME, INSTRUCTIONS GIVEN,PARENTS AT BEDSIDE Plan discussed with: Patient, Other CADENCE JEFF MD August 29, 2024 11:11
[2024-08-29 11:59] VITALS: BP 104/47; PULSE 83; RESP 18; TEMP 98.1; O2SAT 96
[2024-08-29] MEDS ORDERED: LEVO500T91 PO (12:36)
[2024-08-29] MEDS ORDERED: IBUP-1455 PO (12:36)
[2024-08-29] MEDS ORDERED: METR-344 PO (12:36)
--- NOTE | 2024-08-29 12:37 | DVHPN2 ---
Subjective The patient is seen and examined at bedside. Postop day one. Had some tenderness on her incision area. Reviewed: Care Plan, H&P, Labs, Medications, Previous Orders, Radiology Changes from previous H/P or p: No Changes Objective Vitals Vital Signs Date Time Temp Pulse Resp B/P (MAP) Pulse Ox O2 Delivery O2 Flow Rate FiO2 08/29/24 11:59 98.1 83 18 104/47 (66) 96 98.1 08/29/24 08:00 Room Air* 0 21 Intake/Output Intake and Output 08/29/24 07:00 Intake Total 1065 ml Output Total 30 ml Balance 1035 ml Intake Oral 815 ml IV Total 250 ml Drainage Total 30 ml # Voids 4 General Appearance: Alert, Oriented X3, Cooperative, No acute distress HEENT: Atraumatic, PERRLA, EOMI, Mucous membr. moist/pink Neck: Supple Lungs: Clear to auscultation, Normal air movement Cardiovascular: Regular rate, Normal S1, Normal S2, No murmurs, Gallops, Rubs Abdomen: Normal bowel sounds, Soft, No tenderness Neuro: Cranial nerves 3-12 NL Psych/Mental Status: Mental status NL Medications Current Medications Medications Dose Ordered Sig/Christophe Route Start Time Stop Time Status Last Admin Dose Admin Ceftriaxone Sodium 50 ml @ 100 mls/hr DAILY@09 IV 08/27/24 09:00 08/29/24 10:35 100 MLS/HR Metronidazole 100 ml @ 100 mls/hr Q8HR IV 08/26/24 22:00 08/29/24 05:32 100 MLS/HR Ondansetron HCl 4 mg Q4HP PRN IV 08/26/24 19:15 08/29/24 07:01 4 MG Morphine Sulfate 2 mg Q4HPRN PRN IV 08/26/24 19:15 08/27/24 13:39 2 MG Potassium Chloride/Dextrose/ Sod Cl 1,000 ml @ 100 mls/hr Q10H IV 08/27/24 11:15 08/29/24 03:08 100 MLS/HR Ketorolac Tromethamine 30 mg Q8HP PRN IV 08/28/24 13:15 09/02/24 13:14 08/29/24 01:29 30 MG Laboratory Results Laboratory Tests 08/27/24 06:22 08/28/24 06:56 Urinalysis Test 08/26/24 15:07 Urine Color Yellow (Yellow) Urine Clarity Turbid (Clear) H Urine pH 6.5 (5.0-9.0) Urine Specific [place] 1.032 (1.001-1.035) Urine Protein Negative (Negative) Urine Ketones Negative (Negative) Urine Blood Trace /uL (Negative) H Urine Nitrite Negative (Negative) Urine Bilirubin Negative (Negative) Urine Urobilinogen 2 mg/dL (Negative) H Urine Leukocyte Esterase Negative /uL (Negative) Urine RBC 14 /hpf (0 - 4) Urine Microscopic WBC 1 /HPF (0-5) Urine Squamous Epithelial Cells Mod /hpf (<5) Urine Bacteria Few /hpf (None Seen) H Urine Mucus Few (None Seen) Urine Glucose Normal mg/dL (Normal) Urine Test Negative (Negative) Microbiology Microbiology Date/Time Source Procedure Growth Status 08/26/24 23:40 Nose MRSA Screen - Final Complete 08/26/24 19:00 Blood Blood Culture - Preliminary NO GROWTH AFTER 48 HOURS OF INCUBATION. Resulted Labs and/or images reviewed: Labs reviewed by me Assessment/Plan Assessment/Plan Acute abdominal pain Acute appendicitis status post appendectomy Leukocytosis Morbid obesity Adnexal mass status post oophorectomy Plan Continuing current management. I will give her tell Toradol 30 mg IV Q 8 hours as needed to see if her pain better controlled. She stated that morphine make her drowsy. Continuing with IV antibiotic. Diet advanced per surgeon. This medical document was created using an electronic medical record system with [employer] direct computerized dictation system. Although this document has been carefully reviewed, there may still be some phonetic and typographical errors. These areas are purely typographical due to imperfections of the software programs, and do not reflect any compromise in the patient's medical care. Plan discussed with: Patient My Orders Orders - CHAPINCITO NEUMANN MD Procedure Category Date Status Time Ketorolac Injection PHA 08/28/24 In Process (Toradol Injection) 13:15 Discharge DISCHARGE 08/29/24 Transmitted 12:36 Date of Service: August 28, 2024 Billing Provider: CHAPINCITO NEUMANN MD Common Visit Codes: [id number] INP/OBS CARE(HIGH) CHAPINCITO NEUMANN MD August 29, 2024 12:37
--- NOTE | 2024-08-29 12:37 | DVHDS2 ---
Discharge Summary Date of Admission August 26, 2024 at 19:12 Date of Discharge: August 29, 2024 Admitting Diagnosis Acute abdominal pain Acute appendicitis status post appendectomy Leukocytosis Morbid obesity Adnexal mass status post oophorectomy Labs/Diagnostic Data: Laboratory Results Test 08/28/24 06:56 08/27/24 06:22 08/26/24 20:20 08/26/24 16:16 White Blood Count 16.3 10^3/uL (4.4-10.8) Red Blood Count 4.23 10^6/uL (4.0-5.20) Hemoglobin 10.4 g/dL (12.2-16.2) Hematocrit 31.8 % (36.0-46.0) Mean Corpuscular Volume 75.0 fL (80.0-100.0) Mean Corpuscular Hemoglobin 24.5 pg (28.0-32.0) Mean Corpuscular Hemoglobin Concent 32.6 g/dL (32.0-36.0) Red Cell Distribution Width 17.0 % (11.8-14.3) Platelet Count 375 10^3/uL (140-450) Mean Platelet Volume 7.3 fL (6.9-10.8) Neutrophils (%) (Auto) 80.3 % (37.0-80.0) Lymphocytes (%) (Auto) 14.0 % (10.0-50.0) Monocytes (%) (Auto) 5.6 % (0.0-12.0) Eosinophils (%) (Auto) 0.0 % (0.0-7.0) Basophils (%) (Auto) 0.1 % (0.0-2.0) Neutrophils # (Auto) 13.1 10 ^3/uL (1.6-8.6) Lymphocytes # (Auto) 2.3 10 ^3/uL (0.4-5.4) Monocytes # (Auto) 0.9 10 ^3/uL (0-1.3) Eosinophils # (Auto) 0 10 ^3/uL (0-0.8) Basophils # (Auto) 0 10 ^3/uL (0-0.2) Nucleated Red Blood Cells 0.0 % Sodium Level 139 mmol/L (136-145) Potassium Level 3.7 mmol/L (3.5-5.1) Chloride Level 107 mmol/L (98-107) Carbon Dioxide Level 27 mmol/L (20-31) Anion Gap 5 (5-15) Blood Urea Nitrogen 8 mg/dL (9-23) Creatinine 0.57 mg/dL (0.550-1.02) Glomerular Filtration Rate Calc 127 mL/min (>90) BUN/Creatinine Ratio 14.0 (10.0-20.0) Serum Glucose 91 mg/dL (74-106) Calcium Level 8.4 mg/dL (8.7-10.4) Total Bilirubin 0.4 mg/dL (0.2-1.0) Aspartate Amino Transferase (AST) 9 U/L (13-40) Alanine Aminotransferase (ALT) 11 U/L (7-40) Alkaline Phosphatase 84 U/L (46-116) Total Protein 7.2 g/dL (5.7-8.2) Albumin 4.0 g/dL (3.2-4.8) Hepatitis B Surface Antigen Negative (Negative) Hepatitis C Antibody Negative (Negative) Prothrombin Time 11.0 sec (9.3-11.8) Prothrombin Time INR 1.04 (0.9-1.15) Activated Partial Thromboplast Time 30.8 SEC (24.5-34.5) Lipase 28 U/L (12-53) Test 08/26/24 15:07 Urine Color Yellow (Yellow) Urine Clarity Turbid (Clear) Urine pH 6.5 (5.0-9.0) Urine Specific [place] 1.032 (1.001-1.035) Urine Protein Negative (Negative) Urine Ketones Negative (Negative) Urine Blood Trace /uL (Negative) Urine Nitrite Negative (Negative) Urine Bilirubin Negative (Negative) Urine Urobilinogen 2 mg/dL (Negative) Urine Leukocyte Esterase Negative /uL (Negative) Urine RBC 14 /hpf (0 - 4) Urine Microscopic WBC 1 /HPF (0-5) Urine Squamous Epithelial Cells Mod /hpf (<5) Urine Bacteria Few /hpf (None Seen) Urine Mucus Few (None Seen) Urine Glucose Normal mg/dL (Normal) Urine Test Negative (Negative) Other Laboratory Tests 08/28/24 06:56 08/27/24 06:22 Brief Hx & Hospital Course: This is a 29 years old female come in because severe abdominal pain. The patient had pain with nausea and vomiting and low-grade fever. The patient was found to have acute appendicitis in the right adnexa mass. The patient's HIDA scan did not show any cholecystitis. The patient subsequently had appendectomy in right oophorectomy after surgery the patient recovering well. OBGYN recommended follow up as outpatient for the pathology of the right ovary mass. The patient tolerated diet. The patient passed flatus. I am going to discharge her today. Advised the patient to follow up with primary care physician 1-2 weeks. Follow up with surgeon per schedule. Follow up with OBGYN per schedule for pathology follow up of the mass. Activity as tolerated. Diet per home diet. Do not lift any object more than 10 lb for 10 days Physical exam: HEENT: Normocephalic atraumatic pupils equal react to light and accommodation. Extraocular muscles intact, conjunctiva pink, oropharynx moist, no thrush, no exudate. Lymphatic: No lymphadenopathy Cardiovascular exam: S1, S2 was heard. No murmurs, rubs, gallops Lung: Clear on auscultation bilaterally, no wheeze, rale, rhonchi. GI: Abdominal soft, nondistended, nontenderness, positive bowel sounds. Extremity: No crepitus, cyanosis, edema. Pedal pulses present bilateral. Full range of motion. Skin: Normal turgor, no rash. Psych: Alert, oriented x3. Neurology: No focal deficits, cranial nerve II to XII grossly intact. This medical document was created using an electronic medical record system with [employer] computerized dictation system. Although this document has been carefully reviewed, there may still be some phonetic and typographical errors. These areas are purely typographical due to imperfections of the software programs, and do not reflect any compromise in the patient's medical care. Condition at Discharge: Stable Final Diagnosis/Problems List Acute abdominal pain Acute appendicitis status post appendectomy Leukocytosis Morbid obesity Adnexal mass status post oophorectomy Discharge Disposition: Home Discharge Instruct/Medications Diet: Regular, Cardiac 2g Na,low cholest Activity: No Restrictions, As Tolerated Activity comment: Do not lift or carry any object more than 10 lbs for 2 weeks Follow Up/Referral: pcp 1-2 weeks Medications: See med list Discharge Statement: "Patient was advised to return to the ER or call 911 if any headaches, dizziness, shortness of breath, chest pain, abdominal pain, bleeding, fevers, or worsening of medical condition. Patient was counseled about treatment plan, medications, possible side effects, patientverbalized understanding. All questions were answered to the best of my ability. This discharge took greater then 30 minutes in planning, reviewing documentation, counseling the patient, and discussing with other team members." ASSESSMENT ASSESSMENT Assessment acute appendicitis Date of Service: August 29, 2024 Billing Provider: CHAPINCITO NEUMANN MD Common Visit Codes: [id number]-ONC/OBS DISCH DAY >30min CHAPINCITO NEUMANN MD August 29, 2024 12:37
--- NOTE | 2024-08-29 12:48 | DVHINCON2 ---
Date of service: August 29, 2024 Referring Physician hospitalist Reason for Consultation r dermoid tumor History of Present Illness pt was admitted for abd pain,she underwent appendectomy and right oophrectomy.her last pap was a yr ago Past Medical History na Past Surgical History appendectomy and r oophrectomy current surgeries Family History na Social History na Patient Family History: Patient reports no known family medical history. Allergies: Coded Allergies: NO KNOWN ALLERGIES (Unverified , 08/26/24) Home Meds Active Scripts Levofloxacin Hemihydrate (LEVAQUIN 500 MG) 500 Mg Tab, 1 TAB PO DAILY, #7 TAB Prov:CHAPINCITO NEUMANN MD 08/29/24 Metronidazole (Flagyl) 500 Mg Tab, 1 TAB PO TID, #30 TAB Prov:CHAPINCITO NEUMANN MD 08/29/24 Ibuprofen Micronized (Ibuprofen) 800 Mg Tab, 800 MG PO Q8HPRN PRN, #30 TAB Prov:CHAPINCITO NEUMANN MD 08/29/24 Current Medications Current Medications Medications (Trade) Dose Ordered Sig/Christophe Route PRN Reason Start Time Stop Time Status Last Admin Ketorolac Tromethamine (Toradol Injection) 30 mg Q8HP PRN IV MILD PAIN (1-3 PAIN SCALE) 08/28/24 13:15 09/02/24 13:14 08/29/24 01:29 Review of Systems Constitutional: no fever, chill, weight loss HEENT: no eye pain, no hearing loss, no oral lesion, no scleral icterus Heart: no chest pain, no chest pressure Lung: no cough, no dyspnea with exertion Abdomen: see HPI : no pain with urination, normal appearing urine Musculoskeletal: no joint pain, no muscle pain Neurological: no seizure, no loss of sensation, no weakness in extremities Pysch: no depression, no anxiety Derm: no rash, no jaundice Vital Signs Vital Signs Date Time Temp Pulse Resp B/P (MAP) Pulse Ox O2 Delivery O2 Flow Rate FiO2 08/29/24 11:59 98.1 83 18 104/47 (66) 96 98.1 08/29/24 08:00 Room Air* 0 21 Physical Exam SKIN: [nl ] HEENT: [nl ] NECK: [nl ] CARDIAC: [rrr] PULMONARY: [cta] ABDOMEN: [soft,nt] pelvic- ext gent wnl,cx nl,uterus nl size,adenxa nt Labs/Diagnostic Data Labs Test 08/28/24 06:56 08/27/24 06:22 08/26/24 20:20 08/26/24 16:16 Range/Units White Blood Count 16.3 #H 4.4-10.8 10^3/uL Red Blood Count 4.23 4.0-5.20 10^6/uL Hemoglobin 10.4 L 12.2-16.2 g/dL Hematocrit 31.8 L 36.0-46.0 % Mean Corpuscular Volume 75.0 L 80.0-100.0 fL Mean Corpuscular Hemoglobin 24.5 L 28.0-32.0 pg Mean Corpuscular Hemoglobin Concent 32.6 32.0-36.0 g/dL Red Cell Distribution Width 17.0 H 11.8-14.3 % Platelet Count 375 140-450 10^3/uL Mean Platelet Volume 7.3 6.9-10.8 fL Neutrophils (%) (Auto) 80.3 H 37.0-80.0 % Lymphocytes (%) (Auto) 14.0 10.0-50.0 % Monocytes (%) (Auto) 5.6 0.0-12.0 % Eosinophils (%) (Auto) 0.0 0.0-7.0 % Basophils (%) (Auto) 0.1 0.0-2.0 % Neutrophils # (Auto) 13.1 H 1.6-8.6 10 ^3/uL Lymphocytes # (Auto) 2.3 0.4-5.4 10 ^3/uL Monocytes # (Auto) 0.9 0-1.3 10 ^3/uL Eosinophils # (Auto) 0 0-0.8 10 ^3/uL Basophils # (Auto) 0 0-0.2 10 ^3/uL Nucleated Red Blood Cells 0.0 % Sodium Level 139 136-145 mmol/L Potassium Level 3.7 3.5-5.1 mmol/L Chloride Level 107 98-107 mmol/L Carbon Dioxide Level 27 20-31 mmol/L Anion Gap 5 5-15 Blood Urea Nitrogen 8 L 9-23 mg/dL Creatinine 0.57 0.550-1.02 mg/dL Glomerular Filtration Rate Calc 127 >90 mL/min BUN/Creatinine Ratio 14.0 10.0-20.0 Serum Glucose 91 74-106 mg/dL Calcium Level 8.4 L 8.7-10.4 mg/dL Total Bilirubin 0.4 0.2-1.0 mg/dL Aspartate Amino Transferase (AST) 9 L 13-40 U/L Alanine Aminotransferase (ALT) 11 7-40 U/L Alkaline Phosphatase 84 46-116 U/L Total Protein 7.2 5.7-8.2 g/dL Albumin 4.0 3.2-4.8 g/dL Hepatitis B Surface Antigen Negative Negative Hepatitis C Antibody Negative Negative Prothrombin Time 11.0 9.3-11.8 sec Prothrombin Time INR 1.04 0.9-1.15 Activated Partial Thromboplast Time 30.8 24.5-34.5 SEC Lipase 28 12-53 U/L Test 08/26/24 15:07 Range/Units Urine Color Yellow Yellow Urine Clarity Turbid H Clear Urine pH 6.5 5.0-9.0 Urine Specific [place] 1.032 1.001-1.035 Urine Protein Negative Negative Urine Ketones Negative Negative Urine Blood Trace H Negative /uL Urine Nitrite Negative Negative Urine Bilirubin Negative Negative Urine Urobilinogen 2 H Negative mg/dL Urine Leukocyte Esterase Negative Negative /uL Urine RBC 14 0 - 4 /hpf Urine Microscopic WBC 1 0-5 /HPF Urine Squamous Epithelial Cells Mod <5 /hpf Urine Bacteria Few H None Seen /hpf Urine Mucus Few None Seen Urine Glucose Normal Normal mg/dL Urine Test Negative Negative Microbiology Date/Time Source Procedure Growth Status 08/26/24 23:40 Nose MRSA Screen - Final Complete 08/26/24 19:00 Blood Blood Culture - Preliminary NO GROWTH AFTER 48 HOURS OF INCUBATION. Resulted Primary Diagnosis abd pain -s/p appendectomy and r oophrectomy Plan fu after dc to review path report will sign off thank you Plan discussed with: Patient Visit Coding OBGYN Date of Service: August 29, 2024 Billing Provider: JENSEN NUNEZ DO [employer] OPERATOR Common Visit Codes: [id number] SAME DATE (HIGH) [employer] OPERATOR Consultation Codes: [id number] CONSULT <80MIN JENSEN NUNEZ DO August 29, 2024 12:48
[2024-08-29 14:41] VITALS: TEMP 36.7
== END 2024-08-29 16:00 | disposition home or self-care (01) | DRG 513 ==
LOC: ER 14:58 → OVERFLOW 19:12 → WEST WING 22:02
PROVIDERS: ADMIT Internal Medicine; ATTEND Internal Medicine
PROC: 0UB04ZZ Excision of Right Ovary, Percutaneous Endoscopic Approach (ICD-10-PCS; 2024-08-27)
PROC: 0DTJ4ZZ Resection of Appendix, Percutaneous Endoscopic Approach (ICD-10-PCS; principal; 2024-08-27 10:05)
DX: D27.0 Benign neoplasm of right ovary (principal); Z68.41 Body mass index [BMI] 40.0-44.9, adult; K35.80 Unspecified acute appendicitis; E66.01 Morbid (severe) obesity due to excess calories; K21.9 Gastro-esophageal reflux disease without esophagitis; Z79.1 Long term (current) use of non-steroidal anti-inflammatories (NSAID); Z79.899 Other long term (current) drug therapy; Z90.721 Acquired absence of ovaries, unilateral
CPT/HCPCS: 36415; 71045; 74176; 76830; 76856; 80053; 81001; 81025; 83690; 85025; 85610; 85730; 86803; 86850; 86900; 86901; 87040; 87081; 87340; 96365; 96375; G0378; J0131; J1100; J1885; J2250; J2405; J2704; J3490; Q0162